=== PATIENT | female | born 1985 | race African-American/Black ===

== ENCOUNTER 2016-12-19 18:18 | Emergency (ER) | payer SELFPAY ==
[~2016-12-19] VITALS: Ht 162.6 cm; Wt 67.0 kg
[2016-12-19 20:39] LABS: BASOPHILS % 1.1 % (0.0-2.0); HEMOGLOBIN. 14.2 g/dL (12.0-16.0); LYMPHOCYTES % 35.1 % (20.0-50.0); MEAN CORPUSCULAR HEMOGLOBIN 30.2 pg (28.0-32.0); MEAN CORPUSCULAR HGB CONC 33.9 g/dL (31.0-37.0); MEAN CORPUSCULAR VOLUME 89.3 fL (81.0-99.0); MEAN PLATELET VOLUME 9.5 fl (7.4-10.4); MONOCYTES % 8.2 % (2.0-8.0); NEUTROPHILS % 53.6 % (40.0-76.0); PLATELET 265 x1000/uL (130-400); RED CELL DISTRIBUTION WIDTH 13.1 % (11.6-14.6); WHITE BLOOD COUNT 6.9 x1000/uL (4.5-11.0)
[2016-12-19 20:47] LABS: HCG SCREEN NEGATIVE
[2016-12-19 20:51] LABS: ALANINE AMINOTRANSFERASE 27 IU/L (13-61); ALBUMIN 3.7 g/dL (3.4-5.0); ANION GAP 10; CALCIUM 8.4 mg/dL (8.5-10.1); CARBON DIOXIDE 27 mEq/L (21-32); CHLORIDE 105 mEq/L (98-107); INDEX HEMOLYSI 1 (1-3); INDEX ICTERIC 1 (1-4); INDEX LIPEMIC 1 (1-3); UREA NITROGEN BLOOD 10 mg/dL (7-21); eGFR > 60 mL/min (>60)
[2016-12-19 20:52] LABS: TROPONIN I < 0.02 ng/mL (0.00-0.04)
[2016-12-19] MEDS ORDERED: LORAZEPAM 2MG/ML CPJ IM NR (23:29)
[2016-12-20 01:19] VITALS: BP 128/74
== END 2016-12-20 01:21 | disposition home or self-care (01) ==
LOC: ER 19:48
DX: F41.9 Anxiety disorder, unspecified (principal); R00.2 Palpitations; Z98.890 Other specified postprocedural states
CPT/HCPCS: 36415; 71010; 80053; 81025; 84484; 84703; 85025; 93005; 96372; 99285; J2060; Z7610

== ENCOUNTER 2018-11-07 10:05 | Emergency (ER) | payer MEDICAID ==
[~2018-11-07] VITALS: Ht 162.6 cm; Wt 67.0 kg
[2018-11-07] MEDS ORDERED: KETOROLAC 30MG/ML VIAL IV STA (11:01)
[2018-11-07] MEDS ORDERED: SODIUM CHLORIDE 0.9% 1,000 ML IV ONE (11:01)
[2018-11-07 11:42] LABS: BASOPHILS % 0.7 % (0.0-2.0); EOSINOPHILS % 0.3 % (0.0-5.0); HEMATOCRIT. 47.8 % (36.0-48.0); HEMOGLOBIN. 16.3 g/dL (12.0-16.0); LYMPHOCYTES % 17.4 % (20.0-50.0); MEAN CORPUSCULAR HEMOGLOBIN 31.6 pg (28.0-32.0); MEAN CORPUSCULAR VOLUME 92.7 fL (81.0-99.0); MEAN PLATELET VOLUME 9.4 fl (7.4-10.4); NEUTROPHILS % 75.6 % (40.0-76.0); PLATELET 268 x1000/uL (130-400); RED BLOOD CELL COUNT 5.16 mill/uL (4.2-5.4); RED CELL DISTRIBUTION WIDTH 13.7 % (11.6-14.6)
[2018-11-07 11:51] LABS: CHLORIDE 106 mEq/L (98-107)
[2018-11-07] MEDS ORDERED: POTASSIUM CHLORIDE 20MEQ TABLET SR PO ONE (12:00)
[2018-11-07 12:07] LABS: HCG SCREEN NEGATIVE
[2018-11-07 12:55] VITALS: BP 119/74
== END 2018-11-07 14:19 | disposition home or self-care (01) ==
LOC: ER 11:01
DX: E87.6 Hypokalemia (principal); R51 Headache; H53.149 Visual discomfort, unspecified
CPT/HCPCS: 36415; 70450; 80053; 81025; 84703; 85025; 96361; 96374; 99284; J1885; J7030